=== PATIENT | female | born 1980 ===

== ENCOUNTER 2017-10-14 00:20 | Emergency (ER) | payer OTHER ==
[2017-10-14 00:40] VITALS: BP 141/87; PULSE 78; RESP 16; TEMP 98.4; O2SAT 100
[2017-10-14] MEDS ORDERED: Oxycodone/Acetaminophen 5/325 mg Tab PO STA (01:03)
--- NOTE | 2017-10-14 01:05 | ED PDOC ---
HPI: Back Time Seen by Provider: 10/14/17 01:03 Chief Complaint (Nursing): Back Pain Chief Complaint (Provider): back pain History Per: Patient (37 y/o female here with lower back pain that began after weight lifting. Patient notes pain improved with naproxen but returned when she stopped. Notes pain radiating down her leg.) Past Medical History Reviewed: Historical Data, Nursing Documentation, Vital Signs Vital Signs: Last Vital Signs Temp 98.4 F 10/14/17 00:38 Pulse 78 10/14/17 00:38 Resp 16 10/14/17 00:38 BP 141/87 10/14/17 00:38 Pulse Ox 100 10/14/17 00:38 - Family History Family History: States: No Known Family Hx - Home Medications Home Medications: Ambulatory Orders Medication Instructions Recorded Methylprednisolone [Medrol Dose 4 mg PO DAILY #21 mg 10/14/17 Pack (21 tabs)] diaZEpam [Valium] 5 mg PO Q8 #5 tab 10/14/17 - Allergies Allergies/Adverse Reactions: Allergies Allergy/AdvReac Type Severity Reaction Status Date / Time No Known Allergies Allergy Verified 10/14/17 00:37 Review of Systems ROS Statement: Except As Marked, All Systems Reviewed And Found Negative Physical Exam - Reviewed Nursing Documentation Reviewed: Yes Vital Signs Reviewed: Yes - Physical Exam Appears: Positive for: Well, Non-toxic, No Acute Distress Head Exam: Positive for: ATRAUMATIC, NORMAL INSPECTION, NORMOCEPHALIC Skin: Positive for: Normal Color, Warm, DRY Eye Exam: Positive for: EOMI, Normal appearance, PERRL ENT: Positive for: Normal ENT Inspection Neck: Positive for: Normal, Painless ROM Cardiovascular/Chest: Positive for: Regular Rate, Rhythm Respiratory: Positive for: CNT, Normal Breath Sounds Gastrointestinal/Abdominal: Positive for: Normal Exam, Soft Back: Positive for: Normal Inspection Extremity: Positive for: Normal ROM Neurologic/Psych: Positive for: Alert, Oriented - ECG O2 Sat by Pulse Oximetry: 100 - Progress ED Course And Treament: toradol 30 mg IM x 1 dose percocet 5/325 mg x 1 dose Disposition - Clinical Impression Clinical Impression: Sciatica - Patient ED Disposition Is Patient to be Admitted: No - Disposition Referrals: [facility] [Outside] Disposition: Routine/Home Disposition Time: 02:11 Condition: FAIR Additional Instructions: STOP CYCLOBENZAPRINE/FLEXERIL. IF NAPROXEN NOT HELPING WITH SYMPTOMS AFTER 3 DAYS OF USE, STOP AND START MEDROL DOSE PACK Prescriptions: diaZEpam [Valium] 5 mg PO Q8 #5 tab Methylprednisolone [Medrol Dose Pack (21 tabs)] 4 mg PO DAILY #21 mg Instructions: Sciatica (DC) Forms: [facility] ED School/Work Excuse
[2017-10-14] MEDS ORDERED: Oxycodone/Acetaminophen 5/325 mg Tab ONE (01:18)
== END 2017-10-14 02:50 | disposition home or self-care (01) ==
LOC: H.ER 00:20
DX: M54.30 Sciatica, unspecified side (principal)
CPT/HCPCS: 81025; 96372; 99283; J1885